=== PATIENT | female | born 1980 | race Caucasian/White ===

== ENCOUNTER 2025-03-17 13:43 | Emergency (ER) | payer OTHER ==
[2025-03-17] MEDS ORDERED: Ketorolac Tromethamine 30 MG (1 mL) VIAL ONE (15:20)
== END 2025-03-17 17:34 | disposition home or self-care (01) ==
LOC: ERS 13:43
DX: S92.001A Unspecified fracture of right calcaneus, initial encounter for closed fracture (principal); W09.8XXA Fall on or from other playground equipment, initial encounter
CPT/HCPCS: 96372; 96374; 96376; J1885; J3010